=== PATIENT | female | born 1965 | race Caucasian/White ===

== ENCOUNTER → 2023-08-12 06:25 | Day surgery (SDC) | payer BC, SELFPAY | LOC: GI 06:25 | PROVIDERS: ATTENDING PHYSICIAN Internal Medicine | DX: Z12.11 Encounter for screening for malignant neoplasm of colon (principal); K63.5 Polyp of colon; Z86.010 Personal history of colon polyps; Z80.0 Family history of malignant neoplasm of digestive organs | CPT/HCPCS: 45380; 88305 ==

== ENCOUNTER → 2023-09-06 12:39 | Outpatient (REF) | payer BC, SELFPAY | LOC: HWWDC 12:39 | PROVIDERS: ATTENDING PHYSICIAN Internal Medicine | DX: Z12.31 Encounter for screening mammogram for malignant neoplasm of breast (principal) | CPT/HCPCS: 77063; 77067 ==

== ENCOUNTER 2023-10-29 13:49 | Emergency (ER) | payer BC, SELFPAY ==
[2023-10-29 13:55] VITALS: BP 147/89
--- NOTE | 2023-10-29 15:31 | ED.SKININJ ---
HPI-Injury
<Jodee Rome PA-C - Last Filed: 10/29/23 18:53>
General
Chief Complaint: Bite
Source: patient
Exam Limitations: none
Time Seen by Provider: 10/29/23 15:01
Nursing documentation reviewed up to this point in time: agreed with
History of Present Illness-Injury
Initial Injury comments:
Patient is a 58-year-old female presenting to the emergency department for evaluation of cat bite to right hand. Patient states last night she was laying in bed around 11 PM when her cat bit her on the right hand. Patient cleaned it gently with
soap and water at the time and went to sleep. When she woke up this morning her hand was red, swollen, and painful. Her who is an eye doctor did have her take a dose of Augmentin and Keflex.
Given appearance of hand and pain she did come to the emergency department for evaluation.
Patient denies any numbness/tingling in right upper extremity.
Of note�patient was admitted to the hospital many years ago for IV antibiotics following cat bite.
Patient's cat is fully vaccinated. She has not had a tetanus shot in over 10 years.
Review of Systems
<Jodee Rome PA-C - Last Filed: 10/29/23 18:53>
Review of Systems
Allergies reviewed?: Yes
All Other Systems: ROS reviewed and negative except as documented in HPI and ROS
Phy Exam
<Jodee Rome PA-C - Last Filed: 10/29/23 18:53>
Physical Exam
Physical Exam:
Vitals: Hypertensive, otherwise vital signs stable. Afebrile
General: Patient is well appearing, no acute distress. Nontoxic-appearing
Skin: Erythema, edema, and mild warmth to right dorsal hand with 2 small puncture wounds not actively bleeding. No purulent drainage or red streaking.
Head: Normocephalic, atraumatic
Eyes: Sclera nonicteric. EOMs intact. No nystagmus.
Throat: Protecting airway
Neck: Normal ROM, no cervical spine tenderness, no meningismus
Cardiac: Regular rate and rhythm, no murmurs.
Pulm: No apparent respiratory distress.
Abdomen: Nondistended.
Extremities: Erythema, edema, and warmth of right distal hand. Tenderness of right dorsal hand near puncture wound. No redness, warmth of right wrist joint. Patient has full ability to actively flex and extend her right wrist without any pain.
Great distal pulses and right upper extremity. Sensation fully intact. Capillary refill less than 2 seconds.
Neuro: Grossly intact.
Psychiatric: Normal affect.
Course
<Jodee Rome PA-C - Last Filed: 10/29/23 18:53>
Orders/Labs/Results
Orders:
Orders
10/29/23 15:36
Acetaminophen [Tylenol] 650 mg PO NOW STA
Tetanus/Diphth/Acelpertussis [Adacel] 0.5 ml IM .ONCE ONE
Hand, Right 3 View [CR Hand - Right Min 3 Views] Urgent
Comment: r/o foreign body
Reason For Exam: Cat bite right dorsal hand
10/29/23 17:21
Ampicillin/Sulbactam 3 G [Unasyn] 3 gm 0.9% Sodium Chloride 100 ml [Nss] 100 ml IV NOW
Vital Signs
Initial and Last Documented VS:
Initial Vital Signs
Temp Pulse Resp BP Pulse Ox
98.4 F 97 16 147/89 100
10/29/23 13:55 10/29/23 13:55 10/29/23 13:55 10/29/23 13:55 10/29/23 13:55
Last Documented Vital Signs
Temp Pulse Resp BP Pulse Ox
98.4 F 97 16 147/89 100
10/29/23 13:55 10/29/23 13:55 10/29/23 13:55 10/29/23 13:55 10/29/23 13:55
<Margarita Camacho MD - Last Filed: 10/29/23 17:06>
Orders/Labs/Results
Orders:
Orders
10/29/23 15:36
Acetaminophen [Tylenol] 650 mg PO NOW STA
Tetanus/Diphth/Acelpertussis [Adacel] 0.5 ml IM .ONCE ONE
Hand, Right 3 View [CR Hand - Right Min 3 Views] Urgent
Comment: r/o foreign body
Reason For Exam: Cat bite right dorsal hand
10/29/23 17:21
Ampicillin/Sulbactam 3 G [Unasyn] 3 gm 0.9% Sodium Chloride 100 ml [Nss] 100 ml IV NOW
Vital Signs
Initial and Last Documented VS:
Initial Vital Signs
Temp Pulse Resp BP Pulse Ox
98.4 F 97 16 147/89 100
10/29/23 13:55 10/29/23 13:55 10/29/23 13:55 10/29/23 13:55 10/29/23 13:55
Last Documented Vital Signs
Temp Pulse Resp BP Pulse Ox
98.4 F 97 16 147/89 100
10/29/23 13:55 10/29/23 13:55 10/29/23 13:55 10/29/23 13:55 10/29/23 13:55
<Jodee Rome PA-C - Last Filed: 10/29/23 18:53>
MDM/Problems Addressed
Differential Diagnosis Includes:
Not limited to: Cellulitis, retained foreign body, etc.
MDM/Problems Addressed:
58-year-old female presenting with cellulitis of right hand following cat bite yesterday evening. Cat fully vaccinated. Patient did take 1 dose of and 1 dose of Keflex this morning prior to visit to emergency department. Patient denies any
systemic signs of including fever, chills, nausea, vomiting, or significant weakness. She does, however, endorse pain, swelling, redness of right hand. Vital signs are stable�she is afebrile. Patient is well-appearing and in no apparent distress.
She is nontoxic-appearing. She does have significant erythema, tenderness, and warmth to right dorsal hand. No evidence of joint involvement. No red streaking into right wrist or right forearm. No evidence of neurovascular compromise of right
upper extremity. Patient has full range of motion of right fingers. Given patient has only had 1 dose of antibiotic�would not suspect improvement at this time. Although�right hand is concerning for a cellulitis secondary to infected cat bite.
Did consider inpatient IV antibiotic therapy. Patient does wish to trial outpatient antibiotic treatment. Will give 1 dose of IV Unasyn in emergency department and discharged with week-long course of Augmentin 875. Tetanus shot updated. Return
precautions discussed with patient at length. She will return with any worsening signs of infection including increasing redness, swelling, purulent drainage, fever/chills, nausea/vomiting, etc. patient seen with attending physician.
Chronic conditions affecting care:
N/A
Acute Exacerbation and/or Progression of Chronic Illness:
N/A
<Jodee Rome PA-C - Last Filed: 10/29/23 18:53>
*Radiology
Radiology exam reviewed: preliminary read by ED provider (No evidence of retained foreign body) and radiology read reviewed (Mild subcutaneous emphysema of right dorsal hand secondary to penetrating injury.)
*Pulse Oximetry
Patient hypoxic: no
*EKG
Interpreted by ED Provider?: NA
*Tube Lancer Interpretation
Rate: Tube Lancer- N/A
*Critical Care Note
Total Time (30-74mins, 75-104mins- exclusive of procedures): Not Applicable
ED Attending Note
<Jodee Rome PA-C - Last Filed: 10/29/23 18:53>
-
Portions of this chart may have been created with voice recognition software.� Occasional wrong word or��sound alike� substitutions may have occurred due to the inherent limitations of voice recognition software.
<Margarita Camacho MD - Last Filed: 10/29/23 17:06>
ED Attending Note
Patient seen and examined by attending physician: Yes
I performed the substantive portion of visit, reviewed & personally made and approve the management plan that is documented in note by myself or PAUL.: Yes
ED Attending Note:
Patient presents with erythema, pain and swelling of dorsal aspect of right hand after being bit by her cat last night. I suspect an infected cat bite. Patient denies fevers and chills. She has taken 1 dose of Keflex and Augmentin, both earlier
this morning. There is no streaking redness into right wrist nor right forearm. I spoke to both the patient and her and explained that it is possible for the infection to get worse. However, given she has only had 1 dose of Augmentin, I
do not expect to see improvement at this time because her antibiotic course has not been long enough. We will give patient a dose of IV antibiotics now and will send home with 875 mg of Augmentin. Patient instructed to return immediately with any
fevers, chills or worsening redness or swelling into wrist or forearm. Patient has strong pulses and full movement of fingers and right hand.
Discharge Plan
Departure
Patient Disposition: Home (Routine Discharge)
Date of Disposition: 10/29/23
Time of Disposition: 18:23
Patient with high blood pressure during this ER visit?: Yes
Condition: Good
Covid-19: Not Applicable
Discharge Problem:
Infected cat bite of hand
Instructions: Cellulitis (Skin Infection), Adult ED, Animal Bites ED
Prescriptions:
New
amoxicillin-pot clavulanate 875-125 mg tablet
1 tab PO BID Qty: 14 0RF
No Action
No Meds [No Current Medications]
Referrals:
Jesse Ordoñez MD [Family Provider] - Follow up in 2-3 days
Activity Restrictions/Additional Instructions:
RETURN TO THE EMERGENCY DEPARTMENT WITH ANY SIGNS OF WORSENING INFECTION INCLUDING FEVERS, CHILLS, WORSENING REDNESS/SWELLING/PAIN IN RIGHT HAND, PUS DRAINING FROM WOUND, RED STREAKING OF HAND/ARM, NAUSEA/VOMITING, SEVERE FATIGUE, WORSENING IN
CURRENT SYMPTOMS, OR ANY OTHER CONCERNS
-It is very important to take your antibiotic twice a day for the next week. You can apply ice to hand and take Tylenol/Motrin as needed for any discomfort.
-Monitor your symptoms very closely and return to the emergency department with any signs of worsening infection. You may require IV antibiotic
-Follow-up with your primary care provider in a few days for further evaluation and to ensure that symptoms are improving
Interventions
Interventions:
*Risk Screen - Suicide Last Done: 10/29/23 13:55
*General Assessment Last Done: 10/29/23 13:55
*Neglect/Abuse Screening Last Done: 10/29/23 13:55
*ED COVID-19 Vaccine History Last Done: 10/29/23 13:55
*Nursing Disposition Last Done: 10/29/23 18:37
ED-Skin Assessment Last Done: 10/29/23 14:24
Discharge Date and Time
Discharge Date/Time: 10/29/23 18:37
Print Language: SAO TOMEAN
[2023-10-29] MEDS: ADACEL 0.5 ML IM (15:49)
[2023-10-29] MEDS: UNASYN IV (17:43)
== END 2023-10-29 18:37 | disposition home or self-care (01) ==
LOC: EMR 13:49
PROVIDERS: EMERGENCY PHYSICIAN Emergency Medicine; FAMILY PHYSICIAN Internal Medicine
DX: S61.451A Open bite of right hand, initial encounter (principal); L03.113 Cellulitis of right upper limb; W55.01XA Bitten by cat, initial encounter; Z23 Encounter for immunization
CPT/HCPCS: 99284; 96365; 90471; 73130; 90715

== ENCOUNTER 2023-10-30 16:40 | Inpatient (IN) | payer BC, SELFPAY ==
[2023-10-30 15:35] VITALS: BP 133/78
[2023-10-30 15:50] VITALS: BMI 20.5
--- NOTE | 2023-10-30 15:52 | ED.GENMED ---
History of Present Illness
General
Chief Complaint: Skin Problem
Source: patient
Exam Limitations: none
Time Seen by Provider: 10/30/23 15:42
Nursing documentation reviewed up to this point in time: agreed with
History of Present Illness
History of Present Illness:
The patient is a generally well and healthy 58-year-old female who comes back to the emergency department after taking 4 doses of Augmentin for an infected cat bite of her left hand. Despite the Augmentin, the patient's swelling and redness is
getting worse and starting to spread up her right arm. Patient reports she feels the pain from the top of her right hand towards her right elbow. She denies fevers and chills.
Past History
Past History
ED Past Medical History: None
ED Past Surgical History: Other
Social History
Tobacco: Non-smoker
Alcohol: Other
Drug: None
Personal:
Living: with family
Employment: Other
Family History
Family History: Other
Review of Systems
Review of Systems
Allergies reviewed?: Yes
All Other Systems: ROS reviewed and negative except as documented in HPI and ROS
Constitutional: Reports no symptoms
EENT: Reports no symptoms
Respiratory: Reports no symptoms
Cardiac: Reports no symptoms
ABD/GI: Reports no symptoms
: Reports no symptoms
Musculoskeletal: Reports edema
Skin: Reports other
Neurological: Reports no symptoms
Endocrine: Reports no symptoms
Hematologic/Lymphatic: Reports no symptoms
Psychiatric: Reports no symptoms
Phy Exam
Physical Exam
Physical Exam:
Physical Exam
General: no apparent distress, not acutely ill
Neck: supple.
Heart: s1/s2 regular rate and rhythm, no murmur. equal radial pulses.
Lungs: no acute respiratory distress. clear bilaterally
Abdomen: Soft, nontender
Neuro: alert and oriented. no focal neurological deficits
Skin: Significant swelling and erythema of dorsal aspect of right hand. Mild streaking erythema of right forearm. Strong pulses of right upper extremity with excellent cap refill
Psychiatric: well kept. interactive and cooperative
Extremities: no edema. no calf tenderness. negative homans. good distal pulses
Course
Orders/Labs/Results
Orders:
Orders
10/30/23 15:51
Piperacillin/Tazo 4.5 Gram [Zosyn] 4.5 gram in 100 ml IV NOW
10/30/23 16:03
Complete Blood Count/With Diff Urgent
Comprehensive Metabolic Panel Urgent
Abnormal Lab Results
10/30/23
16:03
RBC 3.97 L 10^6/uL
(4.20-5.40)
Hct 35.6 L %
(37.0-47.0)
MCH 31.5 H pg
(27.0-31.0)
Absolute Monos (auto) 0.8 H 10^3/uL
(0.1-0.6)
Monocytes % 10.0 H %
(1.7-9.3)
10/30/23 16:03
Vital Signs
Initial and Last Documented VS:
Initial Vital Signs
Temp Pulse Resp BP Pulse Ox
98.2 F 79 16 133/78 98
10/30/23 15:35 10/30/23 15:35 10/30/23 15:35 10/30/23 15:35 10/30/23 15:35
Last Documented Vital Signs
Temp Pulse Resp BP Pulse Ox
98.2 F 79 16 133/78 98
10/30/23 15:35 10/30/23 15:35 10/30/23 15:35 10/30/23 15:35 10/30/23 15:35
MDM/Problems Addressed
Differential Diagnosis Includes:
Infected right hand cat bite, tenosynovitis, right forearm cellulitis
MDM/Problems Addressed:
Patient presents with acute swelling and redness of right hand
Acute Exacerbation and/or Progression of Chronic Illness:
Patient is mildly acutely hypertensive, likely due to pain
Acute Exacerbation and/or Progression of Chronic Illness: HTN
*Pulse Oximetry
Patient hypoxic: no
*EKG
Interpreted by ED Provider?: NA
*Airplane Rigger Interpretation
Rate: Airplane Rigger- N/A
*Critical Care Note
Total Time (30-74mins, 75-104mins- exclusive of procedures): Not Applicable
Data Reviewed
Review of Other/Old Records Reveals: Radiology Studies (X-ray of right hand reviewed from yesterday. Soft tissue swelling no foreign body)
Source: patient
Patient Management
Social determinants of health affecting care: Living situation and Strong social support
Escalation/DeEscalation of care consider admission/obs:
Given that symptoms are refractory to multiple doses of Augmentin, decision made to admit patient for IV antibiotics
ED Attending Note
-
Portions of this chart may have been created with voice recognition software.� Occasional wrong word or��sound alike� substitutions may have occurred due to the inherent limitations of voice recognition software.
Discharge Plan
Departure
Patient Disposition: Admit
Date of Disposition: 10/30/23
Time of Disposition: 16:21
Admit to: Med/Surg
Presentation/result/management discussed w/ accepting MD/DO: Hospitalist
Patient with high blood pressure during this ER visit?: Yes
Condition: Good
Covid-19: Not Applicable
Discharge Problem:
Cat bite of right hand with infection
Prescriptions:
No Action
amoxicillin-pot clavulanate 875-125 mg tablet
1 tab PO BID Qty: 14 0RF
Patient Comments:
10/30/23: Take for 7 days, starting 10/29/23
acetaminophen [Tylenol Extra Strength] 500 mg Tablet
1,000 mg PO Q6HPRN PRN (Reason: mild pain)
naproxen sodium [Aleve] 220 mg Tablet
440 mg PO [id number] PRN (Reason: mild pain)
vitamin D3-vitamin K2 125 mcg (5,000 unit)-100 mcg Capsule
2 cap PO DAILY
vitamin D3-vitamin K2 125 mcg (5,000 unit)-100 mcg Capsule
3 cap PO HS
Referrals:
Jesse Ordoñez MD [Family Provider] -
Interventions
Interventions:
*Risk Screen - Suicide Last Done: 10/30/23 15:50
*General Assessment Last Done: 10/30/23 15:50
*Neglect/Abuse Screening Last Done: 10/30/23 15:50
ED-Skin Assessment Last Done: 10/30/23 15:50
Discharge Date and Time
Print Language: GREEK
[2023-10-30] MEDS: ZOSYN 100 IV (16:06)
[2023-10-30 16:10] LABS: % Basophils 0.6 % (0-2); % Eosinophils 3.3 % (0-6); % Immature Granulocytes 0.2 % (0-0.5); % Lymphocytes 27.5 % (20.5-51.1); % Neutrophils 58.4 % (42.2-75.2); Absolute Basophils 0.1 10^3/uL (0-0.2); Absolute Eosinophils 0.3 10^3/uL (0-0.7); Absolute Lymphocytes 2.3 10^3/uL (1.2-3.4); Absolute Monocytes 0.8 10^3/uL (0.1-0.6); Absolute Neutrophils 4.8 10^3/uL (1.4-6.5); Hematocrit 35.6 % (37.0-47.0); Hemoglobin 12.5 g/dL (12.0-16.0); Mean Corp Hgb Conc. 35.1 g/dL (33.0-37.0); Mean Corpuscular Hgb 31.5 pg (27.0-31.0); Mean Corpuscular Volume 89.7 fL (81.0-99.0); Mean Platelet Volume 9.7 fL (7.4-10.4); Nucleated Red Blood Cells % 0 %; Platelet Count 189 10^3/uL (130-400); Red Blood Cell Count 3.97 10^6/uL (4.20-5.40); Red Cell Dist. Width 12.3 % (11.5-14.5); White Blood Cell Count 8.2 10^3/uL (4.8-10.8)
--- NOTE | 2023-10-30 16:15 | HPS.HSE ---
Family Physician
-
Family Physician: Jesse Ordoñez
Chief Complaint
-
Cat bite
History of Present Illness
58-year-old with no significant past medical history presented to us with cat bite o on her right hand. Patient got bit by her own cat on night. She took amoxicillin yesterday morning. She was here in the ER yesterday afternoon. She got
intravenous Unasyn,tetanus shot yesterday. She was sent home on oral antibiotics. her cat is upto date with shots. Today her symptoms got worse. Her redness spread her to her right arm the swelling got worse. Patient denied any fever, chills,
chest pain, short of breath patient denies headache, dizziness, syncopal episode. Patient denies abdominal pain, nausea, vomiting, diarrhea. Patient denies dysuria, hematuria.
Received a dose of Unasyn in ER. Admitted for further management
Medical History
Past Medical History
Past Medical History: Reports Other
Additional Past Medical History:
Neuropathy
Lumbar radiculopathy
GERD
Past Surgical History: Reports None
Social History
Tobacco: Non-smoker
Alcohol: None
Drug: None
Personal:
Living: With Family
Family History
Family History: Not pertinent
Allergies / Home Medications
Allergies reflects when Allergies were last updated in [facility].
Home Medications with original date entered in [facility]
Allergy/Medication List:
Allergies
Allergy/AdvReac Type Severity Reaction Status Date / Time
acetaminophen [From Vicodin] Allergy Unknown Verified 10/30/23 15:38
codeine Allergy Unknown Verified 10/30/23 15:38
hydrocodone [From Vicodin] Allergy Unknown Verified 10/30/23 15:38
Home Medications
amoxicillin 875 mg-potassium clavulanate 125 mg tablet 1 tab PO BID #14 tabs 10/29/23
acetaminophen 500 mg tablet (Tylenol Extra Strength) 1,000 mg PO Q6HPRN PRN mild pain 10/30/23
naproxen sodium 220 mg tablet (Aleve) 440 mg PO [id number] PRN mild pain 10/30/23
vitamin D3 125 mcg (5,000 unit)-vitamin K2 100 mcg capsule 2 cap PO DAILY 10/30/23
vitamin D3 125 mcg (5,000 unit)-vitamin K2 100 mcg capsule 3 cap PO HS 10/30/23
Review of Systems
-
Constitutional: Reports No Symptoms
EENT: Reports No Symptoms
Respiratory: Reports No Symptoms
Cardiac: Reports No Symptoms
Abdomen/GI: Reports No Symptoms
: Reports No Symptoms
Musculoskeletal: Reports No Symptoms
Skin: Reports Other (Right hand, arm red and swollen)
Neurological: Reports No Symptoms
Endocrine: Reports No Symptoms
Hematologic/Lymphatic: Reports No Symptoms
Psych: Reports No Symptoms
Physical Exam
Vital Signs
Vital Signs
Temp Pulse Resp BP Pulse Ox
98.2 F 79 16 133/78 98
10/30/23 15:35 10/30/23 15:35 10/30/23 15:35 10/30/23 15:35 10/30/23 15:35
Physical Exam
General: Well Developed, Well Nourished and No Apparent Distress
HEENT: NormoCephalic, Moist mucous membranes and Atraumatic
Respiratory: Clear
Cardiac: S1/S2 and Regular Rhythm; No Murmur or Rub
GI: Soft, Non Tender, Non Distended and Normal Bowel Sounds; No Organomegaly
Rectal: Deferred by Provider
Musculoskeletal: No Clubbing, No Cyanosis and No Edema
Skin: Rash and Other (Significant swelling and erythema of dorsal aspect of right hand. Streaking erythema of right forearm)
Neuro: AO x 3 and Nonfocal/grossly intact
Psych: Calm
Laboratory Results
-
10/30/23 16:03
Data Reviewed
-
Lab Data: Labs Reviewed by me
Impression/Plan
-
# Infected cat bite
-Failed outpatient oral antibiotic therapy
-IV Unasyn continued
-Tylenol as needed for fever
-got tetanus shot in er yesterday.
# DVT prophylaxis
SCD
# CODE STATUS
-Full code
[2023-10-30 16:43] LABS: ALT (SGPT) < 10 U/L (0-35); AST (SGOT) 19 U/L (14-36); Albumin 4.1 g/dl (3.5-5.0); Alkaline Phosphatase 62 U/L (38-126); Blood Urea Nitrogen 13 mg/dl (7-17); Calcium 9.5 mg/dl (8.4-10.2); Carbon Dioxide 26 mmol/L (22-30); Chloride 105 mmol/L (98-107); Estimated Creatinine Clearance 100 ml/min; Glucose 113 mg/dl (70-99); Potassium 3.6 mmol/L (3.5-5.1); Sodium 141 mmol/L (135-145); Total Bilirubin 0.6 mg/dl (0.2-1.3); Total Protein 6.1 g/dl (6.3-8.2); eGFR > 60.00
--- NOTE | 2023-10-30 17:09 | W.PN.UPDATE ---
Update Note
Progress Note Update
I saw and examined the patient.
The PRODUCE ASSOCIATE's note was reviewed and I agree with the note.
Patient is a 58-year-old female with no significant past medical history came to ER with right hand cat bite resulting in swelling and erythema of extensor surface. Patient was seen and evaluated in ER yesterday and was given 1 dose of IV Unasyn
and subcu tetanus and was discharged on oral Augmentin therapy. Patient noticed continued worsening swelling and came to ER for repeat evaluation. No reported fever. Small scabbed cat bite wound on extensor surface without any drainage on exam.
No other reported cardiopulmonary/GI issues.
HEENT: No pallor, cyanosis, or jaundice. Throat clear.
NECK: Supple. No JVD.
RESPIRATORY: Lungs clear to auscultation.
CVS: S1, S2 normal. RRR. No murmur, rub or gallop.
ABDOMEN: Soft, non-tender. No distension. BS+/normal.
EXTREMITIES: Right hand extensor surface swelling/erythema
COMMUNITY DEVELOPMENT OFFICER: AOx3. No focal deficits.
Right hand cat bite
Failure of oral antibiotics therapy
-no localized collection on exam
-no leukocytosis afebrile
-Maintain on IV Unasyn therapy
-Tylenol/Toradol for pain control
-Blood culture if spikes fever
-Further imaging/surgical evaluation if does not improve
-Check hbga1c
DVTPPX- scd
Full code
[2023-10-30 17:57] VITALS: BP 133/81; BMI 19.6
--- NOTE | 2023-10-30 19:30 | PTCARENOTE ---
Pt. in room with spouse, AAO x 3, call red within reach.
[2023-10-30] MEDS: UNASYN IV (22:11)
[2023-10-30 23:49] VITALS: BP 132/72
[2023-10-31] MEDS: UNASYN IV ×4 (05:07→21:21)
[2023-10-31 07:09] VITALS: BP 118/71
[2023-10-31] MEDS: TYLENOL 650 MG PO ×3 (07:49→21:22)
[2023-10-31 08:26] LABS: % Basophils 0.7 % (0-2); % Immature Granulocytes 0.3 % (0-0.5); % Lymphocytes 33.7 % (20.5-51.1); % Monocytes 9.9 % (1.7-9.3); % Neutrophils 51.4 % (42.2-75.2); Absolute Eosinophils 0.2 10^3/uL (0-0.7); Absolute Lymphocytes 1.9 10^3/uL (1.2-3.4); Absolute Monocytes 0.6 10^3/uL (0.1-0.6); Hematocrit 35.1 % (37.0-47.0); Hemoglobin 12.1 g/dL (12.0-16.0); Mean Corp Hgb Conc. 34.5 g/dL (33.0-37.0); Mean Corpuscular Hgb 31.2 pg (27.0-31.0); Mean Corpuscular Volume 90.5 fL (81.0-99.0); Mean Platelet Volume 10.5 fL (7.4-10.4); Nucleated Red Blood Cells % 0 %; Platelet Count 177 10^3/uL (130-400); Red Blood Cell Count 3.88 10^6/uL (4.20-5.40); Red Cell Dist. Width 12.3 % (11.5-14.5); White Blood Cell Count 5.8 10^3/uL (4.8-10.8)
[2023-10-31 08:27] LABS: Blood Urea Nitrogen 8 mg/dl (7-17); Calcium 8.6 mg/dl (8.4-10.2); Carbon Dioxide 24 mmol/L (22-30); Chloride 108 mmol/L (98-107); Estimated Creatinine Clearance 96 ml/min; Glucose 96 mg/dl (70-99); Potassium 3.9 mmol/L (3.5-5.1); Sodium 143 mmol/L (135-145); eGFR > 60.00
--- NOTE | 2023-10-31 08:36 | W.PN.HOSP.TC ---
Today's Communication/Plan
-
continue IV abx today
possible transition to oral abx tomorrow
Assessment / Plan
Assessment / Plan
Right hand cat bite
Failure of oral antibiotics therapy
-no localized induration/drainage on exam
-no leukocytosis afebrile
-Maintain on IV Unasyn therapy
-Tylenol/Toradol for pain control
-Blood culture if spikes fever
-Hbga1c pending
-Further imaging/surgical evaluation if does not improve
DVTPPX- scd
Full code
Anticipated Discharge: Within 24 hours
Subjective/Interval History
-
Date of Service: October 31, 2023
no acute issues overnight
afebrile
Objective Data
-
Labs:
Laboratory Results
10/31/23
06:23
WBC 5.8
Hgb 12.1
Hct 35.1 L
Plt Count 177
Sodium 143
Potassium 3.9
Chloride 108 H
Carbon Dioxide 24
BUN 8
Creatinine 0.6
Glucose 96
Calcium 8.6
Vital Signs:
Vital Signs
Temp Pulse Resp BP Pulse Ox
97.5 F 67 18 118/71 98
10/31/23 07:09 10/31/23 07:09 10/31/23 07:09 10/31/23 07:09 10/31/23 07:09
I&O
10/30/23 10/31/23 11/01/23
06:59 06:59 06:59
Intake Total 720 / 720
Balance 720 / 720
Review of Systems
-
Respiratory: Reports No Symptoms
Cardiac: Reports No Symptoms
Abdomen/GI: Reports No Symptoms
Physical Exam
-
General: No Apparent Distress and Comfortable
HEENT: Negative Oxygen
Respiratory: Clear to Auscultation
Cardiac: Regular Rhythm and S1/S2; Negative Murmur or Rub
GI: Soft, Nontender and Nondistended
Musculoskeletal: No Edema
Neuro: Awake, Alert, Oriented, No Motor Deficits and Nonfocal/Grossly Intact
Psych: Calm
--- NOTE | 2023-10-31 11:00 | CM ---
CM following re: discharge planning.
Reviewed pt's chart, met with pt.
Pt is a 58 year old female, admitted with primary dx of Right hand cat bite
Pt reports she lives with and a son in a 2[address], 1 steps to enter. 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
PCP: Jesse Randall
Pharmacy: [facility] [place]
D/c plan: home with anticipated no needs. to transport at discharge.
CM will follow with discharge plan updates as needed.
[2023-10-31 13:11] LABS: Glycohemoglobin (HgbA1c) 5.5 % (4.0-5.6)
[2023-10-31 15:36] VITALS: BP 116/73
[2023-10-31 23:12] VITALS: BP 111/66
[2023-11-01] MEDS: UNASYN IV ×2 (04:05→09:48)
[2023-11-01 06:48] LABS: % Basophils 0.9 % (0-2); % Eosinophils 6.2 % (0-6); % Immature Granulocytes 0.2 % (0-0.5); % Lymphocytes 39.6 % (20.5-51.1); % Monocytes 9.2 % (1.7-9.3); % Neutrophils 43.9 % (42.2-75.2); Absolute Eosinophils 0.3 10^3/uL (0-0.7); Absolute Lymphocytes 1.8 10^3/uL (1.2-3.4); Absolute Monocytes 0.4 10^3/uL (0.1-0.6); Hematocrit 35.2 % (37.0-47.0); Hemoglobin 12.3 g/dL (12.0-16.0); Mean Corp Hgb Conc. 34.9 g/dL (33.0-37.0); Mean Corpuscular Hgb 31.6 pg (27.0-31.0); Mean Corpuscular Volume 90.5 fL (81.0-99.0); Mean Platelet Volume 9.9 fL (7.4-10.4); Nucleated Red Blood Cells % 0 %; Platelet Count 180 10^3/uL (130-400); Red Blood Cell Count 3.89 10^6/uL (4.20-5.40); Red Cell Dist. Width 12.2 % (11.5-14.5); White Blood Cell Count 4.7 10^3/uL (4.8-10.8)
[2023-11-01 07:00] VITALS: BP 129/75
[2023-11-01 07:21] LABS: Blood Urea Nitrogen 7 mg/dl (7-17); Calcium 8.9 mg/dl (8.4-10.2); Carbon Dioxide 27 mmol/L (22-30); Chloride 108 mmol/L (98-107); Estimated Creatinine Clearance 96 ml/min; Glucose 90 mg/dl (70-99); Potassium 3.9 mmol/L (3.5-5.1); Sodium 143 mmol/L (135-145); eGFR > 60.00
--- NOTE | 2023-11-01 13:08 | W.PN.HOSP.TC ---
Today's Communication/Plan
-
d/c home
Assessment / Plan
Assessment / Plan
Right hand cat bite
Failure of oral antibiotics therapy
-no localized induration/drainage on exam
-no leukocytosis afebrile
-Tylenol/Toradol for pain control
-Hbga1c 5.5
-Further imaging/surgical evaluation if does not improve
-Clinically better today, transition to Augmentin for 7 days.
DVTPPX- scd
Full code
More than 30 minutes spent in discharge including
Final examination of the patient
Summarizing hospital stay
Instructions for continuing care to all relevant caregivers
Preparation of discharge records, prescriptions, and referral forms
Total time spent (in minutes): 38mins
Anticipated Discharge: Today
Subjective/Interval History
-
Date of Service: November 01, 2023
no new issues overnight
Objective Data
-
Labs:
Laboratory Results
11/01/23
06:17
WBC 4.7 L
Hgb 12.3
Hct 35.2 L
Plt Count 180
Sodium 143
Potassium 3.9
Chloride 108 H
Carbon Dioxide 27
BUN 7
Creatinine 0.6
Glucose 90
Calcium 8.9
Vital Signs:
Vital Signs
Temp Pulse Resp BP Pulse Ox
97.9 F 69 16 129/75 96
11/01/23 07:00 11/01/23 07:00 11/01/23 07:00 11/01/23 07:00 11/01/23 09:20
I&O
10/31/23 11/01/23 11/02/23
06:59 06:59 06:59
Intake Total 720 / 720 980 / 980
Balance 720 / 720 980 / 980
Review of Systems
-
Respiratory: Reports No Symptoms
Cardiac: Reports No Symptoms
Abdomen/GI: Reports No Symptoms
Physical Exam
-
General: No Apparent Distress and Comfortable
HEENT: Negative Oxygen
Respiratory: Clear to Auscultation
Cardiac: Regular Rhythm and S1/S2; Negative Murmur or Rub
GI: Soft, Nontender and Nondistended
Musculoskeletal: No Edema
Neuro: Awake, Alert, Oriented, No Motor Deficits and Nonfocal/Grossly Intact
Psych: Calm
--- NOTE | 2023-11-01 17:40 | W.DCSUMMARY ---
Discharge Summary
Discharge Data
Date of Admission: 10/30/23
Date of Discharge: 11/01/23
-
Pending Results: No
Hospital Course
on 10/29, Patient is a 58-year-old female with no significant past medical history came to ER with right hand cat bite resulting in swelling and erythema of extensor surface. Patient was seen and evaluated in ER yesterday and was given 1 dose of IV
Unasyn and subcu tetanus and was discharged on oral Augmentin therapy. Patient noticed continued worsening swelling and came to ER for repeat evaluation. No reported fever. Small scabbed cat bite wound on extensor surface without any drainage on
exam. placed on IV unasyn therapy. Tylenol/Toradol for pain control and further imaging/ surgical evaluation if pain does not improve. 10/31- transition to Augmentin. Clinical picture of hand is looking better. tylenol for pain control as needed.
Discharge today.
Discharge Plan
-
Patient Disposition: Home (Routine Discharge)
Discharge Diagnosis/Procedures: Right hand cat bite
Condition: Fair
Diet: Regular
Activity: As tolerated
Driving Restrictions: As prior to admission
Bathing Restrictions: OK to Shower
Referrals:
Jesse Ordoñez MD [Family Provider] - in one week
Prescriptions:
Continued
amoxicillin-pot clavulanate 875-125 mg tablet
1 tab PO BID Qty: 14 0RF
Patient Comments:
10/30/23: Take for 7 days, starting 10/29/23
acetaminophen [Tylenol Extra Strength] 500 mg Tablet
1,000 mg PO Q6HPRN PRN (Reason: mild pain)
vitamin D3-vitamin K2 125 mcg (5,000 unit)-100 mcg Capsule
2 cap PO DAILY
vitamin D3-vitamin K2 125 mcg (5,000 unit)-100 mcg Capsule
3 cap PO HS
Discontinued
naproxen sodium [Aleve] 220 mg Tablet
440 mg PO [id number] PRN (Reason: mild pain)
Discharge Orders:
Discharge Patient (As Directed); Ordered 11/01/23
Ordered By: Fercho Perkins
Discharge Date and Time
Discharge Date/Time: 11/01/23 10:42
Print Language: SLOVENIAN
== END 2023-11-01 10:42 | disposition home or self-care (01) | DRG 603 ==
LOC: 4 WEST ACU 16:40
PROVIDERS: Registered Nurse; ADMITTING PHYSICIAN Hospitalist; EMERGENCY PHYSICIAN Emergency Medicine; FAMILY PHYSICIAN Internal Medicine
DX: L03.113 Cellulitis of right upper limb (principal); S60.571A Other superficial bite of hand of right hand, initial encounter; M54.16 Radiculopathy, lumbar region; K21.9 Gastro-esophageal reflux disease without esophagitis; G62.9 Polyneuropathy, unspecified; W55.01XA Bitten by cat, initial encounter
CPT/HCPCS: 80048; 80053; 83036; 85025; 96365; 99285

== ENCOUNTER → 2024-09-06 09:52 | Outpatient (REF) | payer BC, SELFPAY | LOC: HWWDC 09:52 | PROVIDERS: ATTENDING PHYSICIAN Internal Medicine | DX: Z12.31 Encounter for screening mammogram for malignant neoplasm of breast (principal) | CPT/HCPCS: 77063; 77067 ==